=== PATIENT | female | born 1960 | race Asian ===

== ENCOUNTER 2016-06-07 10:40 | Day surgery (SDC) | payer SELFPAY, OTHER ==
[~2016-06-07 10:40] MED LIST: Bupivacaine 0.25%/EPINEPHrine 1:200,000 10 ML SDV INJECT ONE; Bupivacaine 0.25%/EPINEPHrine 1:200,000 10 ML SDV ONE; Lactated Ringers 1,000 ML IV SCH; Lidocaine 2% 5 ML SDV ONE; Midazolam 1 MG/ML 2 ML SDV ONE; Octyl 2-Cyanoacrylate 1 Tube ONE; Ondansetron 4 MG/2 ML SDV ONE; Propofol 200 MG/20 ML SDV ONE; Rocuronium 10 MG/ML 10 ML Syringe ONE; Scopolamine 1.5 MG Transdermal Patch TRDERM PRN; fentaNYL 250 MCG/5 ML SDV ONE
[2016-06-07] MEDS ORDERED: Acetaminophen/HYDROcodone 325-5 MG Tab PO PRN (11:00)
[2016-06-07] MEDS ORDERED: ceFAZolin 2 GM in Premix Bag 1 BAG IV ONE (11:00)
--- NOTE | 2016-06-07 12:47 | PCM.PREANE ---
Preanesthetic Assessment - Anesthesia/Transfusion/Family Hx Anesthesia History: Prior Anesthesia Without Reaction Family History of Anesthesia Reaction: No Transfusion History: No Prior Transfusion(s) Intubation History: Unknown - Review of Systems General: No Symptoms Pulmonary: No Symptoms Cardiovascular: No Symptoms Gastrointestinal: No symptoms Neurological: No Symptoms Other: Reports: None - Physical Assessment O2 Sat by Pulse Oximetry: 98 Respiratory Rate: 16 Vital Signs: Last Vital Signs Temp 36.3 C 06/07/16 12:15 Pulse 61 06/07/16 12:15 Resp 16 06/07/16 12:15 BP 140/78 06/07/16 12:15 Pulse Ox 98 06/07/16 12:15 Weight: 65.771 kg ASA Class: 1 Mental Status: Alert & Oriented x3 Airway Class: Mallampati = 2 Dentition: Reports: Normal Dentition Thyro-Mental Finger Breadths: 3 Mouth Opening Finger Breadths: 3 ROM/Head Extension: Full Lungs: Clear to auscultation, Normal respiratory effort Cardiovascular: Regular Rate, Regular Rhythm - Lab Values: Laboratory Last Values Urine HCG, Qual NEGATIVE (NEGATIVE) 06/07/16 10:42 - Allergies Allergies/Adverse Reactions: Allergies Allergy/AdvReac Type Severity Reaction Status Date / Time No Known Allergies Allergy Verified 06/02/16 13:09 - Blood Blood Available: No - Anesthesia Plan Pre-Op Medication Ordered: None - Acknowledgements Anesthesia Type Planned: General Anesthesia Pt an Appropriate Candidate for the Planned Anesthesia: Yes Alternatives and Risks of Anesthesia Discussed w Pt/Guardian: Yes Pt/Guardian Understands and Agrees with Anesthesia Plan: Yes PreAnesthesia Questionnaire HEENT History: Reports: Allergic rhinitis Cardiovascular History: Reports: None Respiratory History: Reports: None Gastrointestinal History: Reports: None Genitourinary History: Reports: None COMPLIANCE OFFICER History: Reports: None Musculoskeletal History: Reports: None Neurological History: Reports: Other (see below) (h/o migranes) Psychiatric History: Reports: None Endocrine/Metabolic History: Reports: None Hematologic History: Reports: None Immunologic History: Reports: None Oncologic (Cancer) History: Reports: None Dermatologic History: Reports: None - Past Surgical History Head Surgeries/Procedures: Reports: None HEENT Surgical History: Reports: None Cardiovascular Surgical History: Reports: None Respiratory Surgical History: Reports: None GI Surgical History: Reports: Cholecystectomy, Colonoscopy Female Surgical History: Reports: Tubal ligation Endocrine Surgical History: Reports: None Neurological Surgical History: Reports: None Musculoskeletal Surgical History: Reports: Shoulder surgery Other Musculoskeletal Surgeries/Procedures:: ligament repair right shoulder Oncologic Surgical History: Reports: None - SUBSTANCE USE Smoking Status *Q: Never Smoker Recreational Drug Use History: No - HOME MEDS Home Medications: Home Meds . [No Known Home Meds] 06/02/16 [History] - CURRENT (IN HOUSE) MEDS Current Meds: Current Medications Hydrocodone Bitart/Acetaminophen ([place] 325-5 Mg) 1 tab PO Q4H PRN PRN Reason: Pain Cephalexin (Keflex) 500 mg PO Q6HR RAFFY Diphenhydramine HCl (Benadryl) 25 mg PO Q6H PRN PRN Reason: Itching Lactated Ringer's (Ringers, Lactated) 1,000 mls @ 125 mls/hr IV ASDIRECTED RAFFY Last Admin: 06/07/16 12:13 Dose: 125 mls/hr Ibuprofen (Motrin) 600 mg PO Q8H PRN PRN Reason: Pain Morphine Sulfate (Morphine) 2 mg IVPUSH Q1H PRN PRN Reason: Pain Ondansetron HCl (Zofran Odt) 4 mg PO Q4H PRN PRN Reason: Nausea/Vomiting Ondansetron HCl (Zofran) 4 mg IVPUSH Q6H PRN PRN Reason: Nausea/Vomiting Scopolamine (Transderm-Scop) 1.5 mg TRDERM .ONCE PRN PRN Reason: Post Op Nausea Discontinued Medications Bupivacaine HCl/Epinephrine Bitart (Marcaine 0.25%/Epinephrine 1:200,000) 20 ml INJECT ONETIME ONE Stop: 06/07/16 09:01 Bupivacaine HCl/Epinephrine Bitart (Marcaine 0.25%/Epinephrine 1:200,000) Confirm Administered Dose 40 ml .ROUTE .STK-MED ONE Stop: 06/07/16 08:57 Fentanyl (Sublimaze) Confirm Administered Dose 250 mcg .ROUTE .STK-MED ONE Stop: 06/07/16 10:05 Cefazolin Sodium/Dextrose 2 gm (/ Premix) 50 mls @ 100 mls/hr IV ONETIME ONE Stop: 06/07/16 11:29 Lidocaine (Xylocaine-Mpf 2%) Confirm Administered Dose 5 ml .ROUTE .STK-MED ONE Stop: 06/07/16 10:04 Midazolam HCl (Versed 1 Mg/Ml) Confirm Administered Dose 2 mg .ROUTE .[facility] ONE Stop: 06/07/16 10:05 Octyl Cyanoacrylate (Dermabond Advance) Confirm Administered Dose 1 applic .ROUTE .[facility]-MED ONE Stop: 06/07/16 08:57 Ondansetron HCl (Zofran) Confirm Administered Dose 4 mg .ROUTE .[facility]-MED ONE Stop: 06/07/16 10:04 Propofol (Diprivan 20 Ml) Confirm Administered Dose 200 mg .ROUTE .[facility]-MED ONE Stop: 06/07/16 10:05 Rocuronium [place] (Zemuron) Confirm Administered [facility] Stop: 06/07/16 10:04
[2016-06-07] MEDS ORDERED: Dexamethasone 4 MG/ML 5 ML MDV ONE (12:54)
[2016-06-07] MEDS ORDERED: ceFAZolin 1 GM Vial ONE (12:58)
[2016-06-07] MEDS ORDERED: HYDROmorphone 2 MG/ML Syringe ONE ×2 (13:31→13:54)
[2016-06-07] MEDS ORDERED: diphenhydrAMINE 50 MG/ML SDV ONE (13:33)
[2016-06-07] MEDS ORDERED: fentaNYL 100 MCG/2 ML SDV IVPUSH PRN (13:50)
[2016-06-07] MEDS ORDERED: ePHEDrine 50 MG/ML SDV ONE (14:18)
[2016-06-07] MEDS ORDERED: Neostigmine Methylsulfate 1 MG/ML 5 ML Syringe ONE (14:32)
[2016-06-07] MEDS ORDERED: diphenhydrAMINE 25 MG Cap PO PRN (15:00)
[2016-06-07] MEDS ORDERED: Bupivacaine Liposome 1.3% 20 ML SDV INJECT ONE (15:37)
--- NOTE | 2016-06-07 15:56 | PCM.POSTAN ---
POST ANESTHESIA ASSESSMENT - MENTAL STATUS Mental Status: alert - RESPIRATORY Respiratory Status: respiratory rate WNL, airway patent, O2 saturation stable - CARDIOVASCULAR CV Status: pulse rate WNL, blood pressure stable - GASTROINTESTINAL GI Status: no symptoms - PAIN Pain Score: 0 (stated while lying in bed at 30deg head up) - POST OP HYDRATION Hydration Status: adequate & stable - OBSERVATIONS Free Text/Narrative:: To Medical Surgical bed for observation.
--- NOTE | 2016-06-07 15:59 | PCM.OPNOTE ---
- General Post-Op/Procedure Note Date of Surgery/Procedure: 06/07/16 Operative Procedure(s): abdominoplasty with umbilicoplasty Pre Op Diagnosis: cosmetic Post-Op Diagnosis: Same Anesthesia Technique: General ET tube, Local Primary Surgeon: Brenna Marin Fire Observer: Rena Chairez Surgical Drain/Tube Type: Mane Lund Drain (bilateral incision) Complications: None Condition: Good
[2016-06-07] MEDS ORDERED: Ibuprofen 600 MG Tab PO PRN (17:08)
[2016-06-07] MEDS ORDERED: Ondansetron 4 MG Tab.DIS PO PRN (17:08)
[2016-06-07] MEDS ORDERED: Ondansetron 4 MG/2 ML SDV IVPUSH PRN (17:08)
[2016-06-07] MEDS ORDERED: Morphine 2 MG/ML Syringe IVPUSH PRN (17:08)
[2016-06-07] MEDS ORDERED: Cephalexin 500 MG Cap PO SCH (18:00)
[2016-06-07 19:46] VITALS: BP 126/64
--- NOTE | 2016-06-08 23:56 | OR ---
SURGEON: BRIAN DECKER MD DATE OF PROCEDURE: 06/07/2016 PREOPERATIVE DIAGNOSIS: Cosmetic. POSTOPERATIVE DIAGNOSIS: Cosmetic. PROCEDURES: Abdominoplasty with umbilicoplasty. ANESTHESIA: General ET tube with local anesthetic. MUTUAL FUND SALES AGENT: EVERETT Srivastava. INDICATIONS: Ms. Mitchell is a 55-year-old female with excess abdominal skin with desire for Abdominoplasty. Risks and benefits of this were discussed with her in detail including, but not limited to, bleeding, infection, damage to underlying or overlying structures, possible need for future interventions and possible scarring. Of significant note, she does have an open cholecystectomy scar and the unique risks and benefits associated with this were thoroughly discussed with her including the increased risk of skin breakdown, skin loss and wound healing problems. We also are unable to do any additional liposuction or significant undermining because of the cholecystectomy scar and the limited blood supply to the underlying area. She understands this and it was discussed in detail with her as well. PROCEDURE IN DETAIL: After informed consent was obtained and placed on the chart, the patient was brought to the operating theater and laid in the supine position. After adequate general anesthetic was obtained, the area was prepped and draped in normal fashion and a time-out was completed to confirm side and site. Attention was then paid to the abdominal skin. Markings were made for symmetric excision of the lower abdominal skin and pinch technique was used to ensure that we could close the area with minimal tension. After injection of local anesthesia to the area, the 15-blade was used to dissect through the skin and subcutaneous tissues of the lower part of the incision. Dissection was then carried superiorly undermining this skin flap. Care was taken to isolate the umbilicus and dissection was tapered up to the sternum without undermining the lateral aspect of the skin flap. Dissection was only carried to the cholecystectomy scar itself. Once this was completed, meticulous hemostasis was obtained. The area was copiously irrigated and two size seven SHAHZAD drains were placed in the inferior portion of the incision and brought out the sides and sutured in place using a 3-0 Prolene. The underlying muscle did not need any additional stitches as there was no diastasis. Once redraped, the skin flap was transected at its excess and previously marked position. The umbilicus was measured at 18 cm and once the skin flap was redraped, lower incision had been sutured in place using deep 2-0 PDS sutures, 3 - 0 Monocryl stitches for the deep dermis, and running 4-0 subcuticular for the skin. These were dressed with Steri-Strips. Skin was viable with good refill at the end of closure. The umbilicus was then measured at 18 cm and inverted V incision was made and dissection was carried through the skin flap to allow localization on the umbilicus. This was brought through and sutured in place using deep 4-0 Monocryl stitches in a running fashion for the skin with Dermabond closure. The patient tolerated this well. This was dressed with a Tegaderm border. The patient was placed in a compression garment with the SHAHZAD bulb drain sections in placed laterally, which were dressed with Xeroform. The patient tolerated the procedure well and all counts of needles were correct at the end the case. FOLLOWUP INSTRUCTIONS: The patient will be maintained in the hospital for observation and can go home later today or tomorrow for her comfort level. Scripts were given for discharge. All questions answered and she will see us in clinic tomorrow for re - evaluation. MIKHAIL / QUENTIN /[id number] LYN
== END 2016-06-07 20:42 ==
LOC: MW.SDS 10:40 → MW.MS 16:17 → MW.SDS 20:42
PROVIDERS: ATTEND Plastic Surgery
PROC: 0J080ZZ Alteration of Abdomen Subcutaneous Tissue and Fascia, Open Approach (ICD-10-PCS; principal; 2016-06-07)
DX: Z41.1 Encounter for cosmetic surgery (principal); Z98.51 Tubal ligation status; Z90.49 Acquired absence of other specified parts of digestive tract; Z98.890 Other specified postprocedural states
CPT/HCPCS: 15830; 81025; A9270; J0690; J1100; J1170; J1200; J2250; J2405; J3010; J7120; 00802; J2704

== ENCOUNTER 2023-04-23 08:11 | Day surgery (SDC) | payer SELFPAY ==
[~2023-04-23 08:11] MED LIST changes: +Albuterol 0.083% 2.5 MG/3 ML Neb Soln NEB PRN; -Bupivacaine 0.25%/EPINEPHrine 1:200,000 10 ML SDV INJECT ONE; -Bupivacaine 0.25%/EPINEPHrine 1:200,000 10 ML SDV ONE; +HYDROmorphone 1 MG/ML Syringe IVPUSH PRN; -Lactated Ringers 1,000 ML IV SCH; -Lidocaine 2% 5 ML SDV ONE; +Metoclopramide 10 MG/2 ML SDV IVPUSH PRN; -Midazolam 1 MG/ML 2 ML SDV ONE; +Morphine 2 MG/ML SYRINGE IVPUSH PRN; +Naloxone 0.4 MG/ML SDV IVPUSH PRN; -Octyl 2-Cyanoacrylate 1 Tube ONE; +Ondansetron 4 MG/2 ML SDV IVPUSH PRN; -Ondansetron 4 MG/2 ML SDV ONE; -Rocuronium 10 MG/ML 10 ML Syringe ONE; -Scopolamine 1.5 MG Transdermal Patch TRDERM PRN; +droPERidol 5 MG/2 ML SDV IVPUSH PRN; +fentaNYL 50 MCG/ML SDV IVPUSH PRN; +propofoL 50 ML ONE
[2023-04-23 08:36] LABS: HEMATOCRIT 43.1 % (37.0-47.0); MEAN CORPUSCULAR HEMOGLOBIN 30.2 pg (28.0-32.0); MEAN CORPUSCULAR HGB CONC 32.5 g/dL (32.0-36.0); MEAN CORPUSCULAR VOLUME 92.9 fL (83.0-99.0); MEAN PLATELET VOLUME 8.6 fL (9.4-12.3); PLATELET COUNT,PLT 298 K/uL (150-400); RED BLOOD CELL COUNT 4.64 M/uL (4.10-5.30); WHITE BLOOD CELL COUNT,WBC 5.28 K/uL (3.9-11.3)
[2023-04-23] MEDS ORDERED: Ondansetron 4 MG/2 ML SDV ONE (09:17)
[2023-04-23] MEDS ORDERED: Famotidine 20 MG/2 ML SDV ONE (09:17)
[2023-04-23] MEDS ORDERED: Dexamethasone 4 MG/ML 5 ML MDV ONE (09:17)
[2023-04-23] MEDS ORDERED: Ketorolac 30 MG/ML SDV ONE (09:54)
[2023-04-23] MEDS: Lactated Ringers 1,000 ML IV SCH (11:14)
[2023-04-23 11:19] VITALS: BP 121/69; PULSE 50
== END 2023-04-23 11:07 | disposition home or self-care (01) ==
LOC: MW.SDS 08:11
PROVIDERS: ATTEND Obstetrics & Gynecology
DX: N84.0 Polyp of corpus uteri (principal); N84.1 Polyp of cervix uteri; N95.0 Postmenopausal bleeding; Z79.899 Other long term (current) drug therapy
CPT/HCPCS: 36415; 58558; 85027; J0131; J1100; J1885; J2405; J2704; J3010; J3490; J7120; 00952; C1729